=== PATIENT | male | born 1995 | race Caucasian/White ===

== ENCOUNTER 2022-06-02 20:16 | Emergency (ER) | payer OTHER ==
[~2022-06-02] VITALS: Ht 172.7 cm; Wt 80.0 kg
[2022-06-02 20:18] VITALS: TEMP 98.7
[2022-06-02] MEDS ORDERED: ZOFRAN ODT4 MG PO (22:14)
[2022-06-02 22:39] VITALS: BP 147/79; PULSE 73
== END 2022-06-02 22:46 | disposition home or self-care (01) ==
LOC: COL.ER 20:16
DX: R51.9 Headache, unspecified (principal); R11.2 Nausea with vomiting, unspecified